=== PATIENT | female | born 1995 | race Caucasian/White ===

== ENCOUNTER 2017-08-03 22:46 | Emergency (ER) | payer OTHER ==
[2017-08-03 23:04] VITALS: BP 127/85; PULSE 81; RESP 18; TEMP 99; O2SAT 99
--- NOTE | 2017-08-03 23:23 | PD ---
HPI Chief Complaint: Bite or Sting Time Seen by Provider: 23:19 Travel History International Travel<30 days: No Contact w/Intl Traveler<30days: No Traveled to known affect area: No History of Present Illness HPI 20-year-old female presents for evaluation of a dog bite. Prior to arrival the patient reports that she was playfully chasing her boyfriend after her boyfriend took her phone away and her dog in the excitement bit her on the left arm. She now has a dog bite to the left arm proximal to the elbow with associated mild pain. Pain is aggravated by dog bite with no relieving factors. Denies numbness or tingling or weakness. Last tetanus vaccination unknown. No other complaints. PFSH Past Medical History Asthma: Yes Cardiovascular Problems: Yes (POTS) Diminished Hearing: No Tetanus Vaccination: > 5 Years Influenza Vaccination: No ?: Not Past Surgical History Surgical History: No Previous Surgery Social History Alcohol Use: No Tobacco Use: Yes Substance Use: No Allergies-Medications (Allergen,Severity, Reaction): Coded Allergies: cat dander (Verified Allergy, Unknown, 08/03/17) dog dander (Verified Allergy, Unknown, 08/03/17) pineapple (Verified Allergy, Unknown, 08/03/17) Reported Meds & Prescriptions Reported Meds & Active Scripts Active Augmentin (Amoxicillin-Clavulanate) 875-125 Mg Tab 1 Tab PO BID 7 Days Review of Systems General / Constitutional: No: Fever Musculoskeletal: Positive: Pain Skin: Positive Other (Positive for dog bite) Neurologic: No: Paresthesia Physical Exam Narrative GENERAL: Well-developed well-nourished female no acute distress SKIN: Warm and dry. 1 cm superficial dog bite to the left arm proximal to the elbow. CARDIOVASCULAR: Regular rate and rhythm. No murmur appreciated. RESPIRATORY: No accessory muscle use. Clear to auscultation. Breath sounds equal bilaterally. MUSCULOSKELETAL: No obvious deformities skin as noted above full range of motion left arm distal sensation and pulses preserved NEUROLOGICAL: Awake and alert. No obvious cranial nerve deficits. Motor grossly within normal limits. Normal speech. Data Data Last Documented VS Vital Signs Date Time Temp Pulse Resp B/P (MAP) Pulse Ox O2 Delivery O2 Flow Rate FiO2 08/03/17 23:04 99.0 81 18 127/85 (99) 99 Orders Orders Tetanus/Diphtheria Tox Adult (Tetanus/Di (6/10/18 23:30) Amoxicil-Clavulanate (Augmentin) (08/03/17 23:30) Humerus (Min 2vws) (08/03/17 ) Wound Care (08/03/17 23:19) MDM Medical Decision Making Medical Screen Exam Complete: Yes Emergency Medical Condition: Yes Medical Record Reviewed: Yes Differential Diagnosis Dog bite, puncture wound, laceration, foreign body Narrative Course X-ray imaging will be obtained, tetanus status updated, local wound care provided, Augmentin administered. X-rays unremarkable. The patient is stable for discharge. Diagnosis Primary Impression: Dog bite of left arm Additional Instructions: At the dog quarantined at home for 10 days. Medication as prescribed. Wash with warm soap and water and apply antibiotic cream 2-3 times a day. Return for any emergent medical conditions. Med/Other Pt SpecificInfo: Prescription(s) given Scripts Amoxicillin-Clavulanate (Augmentin) 875-125 Mg Tab 1 TAB PO BID for Infection for 7 Days, #14 TAB 0 Refills Prov: Ct Morales DO 08/03/17 Disposition: 01 DISCHARGE HOME Condition: Stable Luc Ren Aug 03, 2017 23:23
[2017-08-03] MEDS ORDERED: AUGM875T3 PO (23:24)
[2017-08-03] MEDS ORDERED: TETANUS/DIPHTHERIA TOXOID ADULT 0.5 ML VIAL IM ONE (23:30)
[2017-08-03] MEDS ORDERED: AMOXICILLIN/CLAVULANATE K 875 MG TAB PO ONE (23:30)
--- NOTE | 2017-08-04 00:46 | RADRPT ---
EXAM DATE: 08/04/2017 12:11 AM EDT AGE/SEX: 22 years / Female INDICATIONS: Dog bite to distal third of the left humerus. CLINICAL DATA: This is the patient's initial encounter. Patient reports that signs and symptoms have been present for 1 day and indicates a pain score of 3/10. MEDICAL/SURGICAL HISTORY: None. None. COMPARISON: No prior exams available for comparison. FINDINGS: 2 views of the left humerus. Bone alignment within normal limits. No evidence of fracture. No radiopaque foreign body identified. CONCLUSION: Left humerus series within normal limits. Electronically signed by: Lee Jean MD 08/04/2017 12:45 AM EDT
== END 2017-08-04 01:20 | disposition home or self-care (01) ==
LOC: NEPD 22:46
DX: S41.152A Open bite of left upper arm, initial encounter (principal); J45.909 Unspecified asthma, uncomplicated; M25.522 Pain in left elbow; W54.0XXA Bitten by dog, initial encounter; Z72.0 Tobacco use; Z23 Encounter for immunization
CPT/HCPCS: 73060; 90471; 90714